=== PATIENT | female | born 1990 | race Caucasian/White ===

== ENCOUNTER 2019-12-04 09:30 | Emergency (ER) | payer OTHER, SELFPAY ==
--- NOTE | ~2019-12-04 | XR_ITS ---
EXAMINATION: XR chest 1V portable DATE: 12/04/2019 10:10 INDICATION: Shortness of breath. TECHNIQUE: A single frontal view of the chest was obtained. COMPARISON: CT abdomen and pelvis 10/24/2017 FINDINGS: Sensitivity is decreased by obesity. There are airspace opacities in the lower lung zones, left worse than right. No pleural effusion or pneumothorax. The heart size is normal. IMPRESSION: 1. Airspace opacities in the lower lung zones, left worse than right, consistent with atelectasis rad michael pneumonia. Reviewed, dictated and finalized at location A. IMPRESSION: 1. Airspace opacities in the lower lung zones, left worse than right, consisten t with atelectasis versus pneumonia.
--- NOTE | 2019-12-04 09:33 | PC.NURSE ---
Pt states that she has had a outpatient order from a covid-19 screening test from her PCP but cannot find anyone to take the order and test her. 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 Symptoms are not getting better and now having increased SOB since Friday. 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 She was told that all healthcare workers should recieve Covid testing but has been told by several local emergency rooms that she does not meet criteria for testing and they would not test her.
--- NOTE | 2019-12-04 09:35 | ED.SOB ---
HPI - SOB/Dyspnea General Chief Complaint: Shortness of Breath/Dyspnea Stated Complaint: SOB since Friday Time Seen by Provider: 12/04/19 09:32 History of Present Illness HPI Narrative: COugh, SOB, pleuritic chest pain since Friday. Additionally c/o diarrhea and fatigue. She has been seen previously for these symptoms and started on azithromycin. She has prescription for COVID-19 testing from her PCP, but she has not been able to have it collected. No fever. Related Data Home Medications Medication Instructions Recorded Confirmed spironolactone 100 mg PO BID 12/04/19 Allergies Allergy/AdvReac Type Severity Reaction Status Date / Time No Known Allergies Allergy Verified 12/04/19 10:00 Review of Systems Review of Systems: All systems reviewed & are unremarkable except as noted in HPI and below Constitutional: Constitutional: Reports fatigue and Denies fever(s) ENT: Reports nasal congestion and Denies sore throat Cardiovascular: Cardiovascular: Reports chest pain Respiratory: Respiratory: Reports chest congestion, Reports cough and Reports dyspnea Gastrointestinal: Gastrointestinal: Denies nausea and Denies vomiting Musculoskeletal: Musculoskeletal: Reports myalgias Neurologic: Denies weakness [facility] Social History Social History (Updated 12/04/19 @ 12:46 by Ata Durham MD) Smoking status: Never smoker Gender identity (if verbalized by the patient): Female Exam Const: General: no acute distress, alert and ill appearing (mildly) Orientation/consciousness: patient oriented x3 HENMT: Head: normal to inspection Resp: Effort & Inspection: normal respiratory effort Auscultation: rhonchi Cardio: Rate: regular rate Rhythm: regular rhythm GI: GI Palp: Yes Soft to palpation and No Tenderness to palpation present (GI) Skin: General skin exam: normal color Neuro: General: patient oriented x3, moves all extremities and no focal motor deficits Speech: normal speech Extrem: General: normal to inspection Course Vital Signs Vital signs: Vital Signs Temperature 36.6 C 12/04/19 09:55 Pulse Rate 88 12/04/19 09:55 Respiratory Rate 18 12/04/19 09:55 Blood Pressure 133/90 12/04/19 09:55 Pulse Oximetry 98 12/04/19 09:55 Temperature 36.6 C 12/04/19 09:55 Pulse Rate 88 12/04/19 09:55 Respiratory Rate 18 12/04/19 09:55 Blood Pressure 133/90 12/04/19 09:55 Pulse Oximetry 98 12/04/19 09:55 MDM - SOB/Dyspnea MDM Narrative Medical decision making narrative: She has bilateral lower lobe infiltrates. Could certainly be COVID. She is not hypoxic and has no reason for admision. Will send off commercial testing and treat for pneumonia. Differential Diagnosis Differential diagnosis: Likely community acquired pneumonia and other (Bronchitis, COVID-19) Medical Records Attestation: I reviewed the patient's medical records. Lab Data Attestation: I reviewed the patient's lab results. Labs: Lab Results 12/04/19 Range/Units 10:46 COVID-19 Pt Symptomatic Pending COVID-19 PCR Interp Pending SARS-CoV-2 Source Pending SARS-CoV-2 RNA (RT-PCR) Pending Discharge Plan Discharge Clinical Impression: Pneumonia Qualifiers: Pneumonia type: due to unspecified organism Laterality: bilateral Lung location: lower lobe of lung Qualified Code(s): J18.9 - Pneumonia, unspecified organism Patient Disposition: Home, Self-Care Condition: Stable Instructions: Antibiotic Form, Pneumonia (ED) Prescriptions: New azithromycin 250 mg tablet See Rx Instructions .ROUTE .COMPLEX Qty: 6 RF: 0 amoxicillin 500 mg tablet 500 mg PO Q8H 5 Days Qty: 15 RF: 0 albuterol sulfate 90 mcg/actuation HFA aerosol inhaler 2 puff INHALATION QID PRN (Reason: shortness of breath or wheezing) Qty: 8 RF: 0 No Action spironolactone 100 mg Tablet 100 mg PO BID RF: 0 Follow-up/Referrals: PHYSICIAN NOT ON STAFF,NONSTAFF [Non-Staff] - Stand Alone
[2019-12-04 09:55] VITALS: BP 133/90; PULSE 88; RESP 18; TEMP 36.6; O2SAT 98
--- NOTE | 2019-12-04 10:50 | PC.NURSE ---
Swab collected and sent to lab. Patient did not tolerate well; coughing and crying. Hyperventilating prior to collection, encouraged to slow breathing.
[2019-12-06 18:44] LABS: Pan-SARS RNA: NEGATIVE (NEGATIVE); SARS-CoV-2 RNA: NEGATIVE (NEGATIVE)
== END 2019-12-04 11:20 | disposition home or self-care (01) ==
PROVIDERS: Emergency Provider Emergency Medicine; PCP Physician Assistant
DX: J18.9 Pneumonia, unspecified organism (principal); Z20.828 Contact with and (suspected) exposure to other viral communicable diseases
CPT/HCPCS: 71045; 87635; 99283; U0002

== ENCOUNTER 2019-12-18 12:46 | Emergency (ER) | payer OTHER, SELFPAY ==
--- NOTE | ~2019-12-18 | XR_ITS ---
EXAMINATION: XR chest 1V portable INDICATION: Cough TECHNIQUE: Portable AP chest at 1316 hours COMPARISON: 12/04/2019 FINDINGS: Bibasilar airspace opacities persist without significant change. There is no pleural effusi on or pneumothorax. The heart size is normal. IMPRESSION: 1. Stable bibasilar airspace opacities, likely atelectasis. Reviewed, dictated and finalized at location A.
[2019-12-18 12:50] VITALS: BP 140/95; PULSE 89; RESP 20; TEMP 36.5; O2SAT 96
--- NOTE | 2019-12-18 13:00 | ED.URI ---
HPI - URI/Sore Throat General Chief Complaint: Upper Respiratory Infection Stated Complaint: SOB X2WKS,FATIGUED Time Seen by Provider: 12/18/19 12:48 Source: patient Mode of arrival: ambulatory Limitations: no limitations History of Present Illness HPI Narrative: Patient is a 29-year-old female who presents to emergency department for evaluation of upper respiratory symptoms that been present since the beginning of the month was seen in the emergency department on the was diagnosed with pneumonia and sent home completed the medications and notes that she continues to have cough dyspnea pleuritic chest discomfort diarrhea and some mild rhinorrhea and congestion. Patient was seen in urgent care and has been in contact with primary care after her initial ER visit patient notes nothing is helped with her symptoms. On arrival to the room patient in no distress resting comfortably. Patient had negative COVID testing on her initial visit. Related Data Home Medications Medication Instructions Recorded Confirmed spironolactone 100 mg PO BID 12/04/19 Allergies Allergy/AdvReac Type Severity Reaction Status Date / Time No Known Allergies Allergy Verified 12/18/19 12:54 Review of Systems Review of Systems: All systems reviewed & are unremarkable except as noted in HPI and below PMFSH Social History Social History Smoking status: Never smoker Gender identity (if verbalized by the patient): Female Exam Narrative: Exam Narrative: GENERAL: Well-appearing, obese, and in no acute distress. HEAD: Normocephalic, atraumatic. EYES: PERRLA and EOMI. ENT: Nares clear, no rhinorrhea or epistaxis. Mucous membranes moist. CHEST: Clear to auscultation. No respiratory distress. No wheezes rales or rhonchi HEART: Regular rate and rhythm. No murmur heard. Normal peripheral pulses. EXTREMITIES: Normal range of motion. No edema. SKIN: Warm, dry, no rash. NEURO: No focal deficits. Alert and oriented x3. PSYCH: Normal mood and affect. Course Course Emergency Course: Patient in the room in no distress no high risk changes in the blood work or imaging felt appropriate for discharge home for further evaluation by primary care Vital Signs Vital signs: Vital Signs Temperature 97.7 F 12/18/19 12:50 Pulse Rate 89 12/18/19 12:50 Respiratory Rate 20 12/18/19 12:50 Blood Pressure 140/95 H 12/18/19 12:50 Pulse Oximetry 96 12/18/19 12:50 Temperature 97.7 F 12/18/19 12:50 Pulse Rate 82 12/18/19 15:21 Respiratory Rate 15 12/18/19 15:21 Blood Pressure 113/80 12/18/19 15:21 Pulse Oximetry 96 12/18/19 15:21 MDM - URI/Sore Throat MDM Narrative Medical decision making narrative: Patient in the room aware of case findings treatment plan and diagnosis agreeing to follow-up as directed primary care provided with reasons to return likely viral syndrome is the etiology of her symptoms no pneumonia seen on exam nontoxic without emesis felt appropriate for outpatient reevaluation provided with reasons to return can be treated symptomatically Lab Data Result diagrams: 12/18/19 14:23 12/18/19 14:23 Labs: Lab Results 12/18/19 12/18/19 12/18/19 Range/Units 14:23 14:23 14:23 WBC 11.0 H (4.5-10.0) K/mm3 RBC 4.98 (4.2-5.4) M/mm3 Hgb 14.7 (12.0-15.0) g/dL Hct 44.9 (37.0-47.0) % MCV 90.2 (80-100) fl MCH 29.5 (26-34) pg MCHC 32.7 (32-36) g/dl RDW 12.5 (11.5-14.5) % Plt Count 312 (150-375) k/mm3 MPV 8.4 (7.4-10.4) fl Immature Gran % (Auto) 0.6 H (0-0.5) % Neut % (Auto) 51.2 (45.5-73.1) % Lymph % (Auto) 35.5 (18.3-44.2) % [place] % (Auto) 9.1 H (2.6-8.5) % Eos % (Auto) 3.1 (0-4.4) % Baso % (Auto) 0.5 (0.2-1.2) % Lymph # (Auto) 3.92 H (0.9-3.2) K/mm3 [place] # (Auto) 1.0 H (0.1-0.6) K/mm3 Eos # (Auto) 0.3 (0-0.3) K/mm3 Baso # (Auto) 0.1 (
[2019-12-18 14:15] VITALS: BP 137/88; PULSE 86; RESP 16; O2SAT 97
[2019-12-18 14:31] LABS: Basophils Absolute Auto 0.1 K/mm3 (0.0-0.1); Basophils Percent Auto 0.5 % (0.2-1.2); Eosinophils Absolute Auto 0.3 K/mm3 (0-0.3); Eosinophils Percent Auto 3.1 % (0-4.4); Hematocrit 44.9 % (37.0-47.0); Hemoglobin 14.7 g/dL (12.0-15.0); Immature Granulocyte Absolute 0.07 K/mm3 (0.00-0.031); Immature Granulocyte Percent A 0.6 % (0-0.5); Lymphocytes Absolute Auto 3.92 K/mm3 (0.9-3.2); Lymphocytes Percent Auto 35.5 % (18.3-44.2); Mean Corpuscular HGB Conc 32.7 g/dl (32-36); Mean Corpuscular Hemoglobin 29.5 pg (26-34); Mean Corpuscular Volume 90.2 fl (80-100); Mean Platelet Volume 8.4 fl (7.4-10.4); Monocytes Percent Auto 9.1 % (2.6-8.5); Neutrophils Absolute Auto 5.7 K/mm3 (1.3-6.7); Neutrophils Percent Auto 51.2 % (45.5-73.1); Platelet Count Result 312 k/mm3 (150-375); Red Blood Count 4.98 M/mm3 (4.2-5.4); Red Cell Distribution Width 12.5 % (11.5-14.5)
[2019-12-18 14:54] LABS: Alanine Aminotransferase 20 U/L (4-35); Albumin Level 4.1 g/dL (3.5-5.1); Alkaline Phosphatase 89 U/L (38-126); Aspartate Amino Transferase 15 U/L (14-36); Bilirubin,Total 0.3 mg/dL (0.2-1.3); Blood Urea Nitrogen 13 mg/dL (7-17); Calcium 9.1 mg/dL (8.4-10.2); Carbon Dioxide 29 mmol/L (22-30); Chloride 102 mmol/L (98-107); Estimated CRCL calculation 143 ml/min; Estimated Glomerular Filt Rate > 60; Glucose 98 mg/dL (65-105); Sodium 137 mmol/L (137-145)
[2019-12-18 15:21] VITALS: BP 113/80; PULSE 82; RESP 15; O2SAT 96
[2019-12-18 16:31] LABS: Monoscreen Negative (Negative); Negative Monotest Control Negative (Negative); Positive Monotest Control Positive (Positive)
== END 2019-12-18 16:55 | disposition home or self-care (01) ==
PROVIDERS: Emergency Medicine Emergency Medical Services; Emergency Provider Emergency Medicine; PCP Physician Assistant
DX: J06.9 Acute upper respiratory infection, unspecified (principal)
CPT/HCPCS: 36415; 71045; 80053; 85025; 86308; 99283

== ENCOUNTER 2020-06-16 07:28 | Emergency (ER) | payer OTHER, SELFPAY ==
[2020-06-16 07:40] VITALS: BP 154/100; PULSE 120; RESP 18; TEMP 36.5; O2SAT 100
--- NOTE | 2020-06-16 07:58 | ED.GENADULT ---
HPI - General Adult General Chief complaint: Dental/Oral Stated complaint: enlarged tonsils Time Seen by Provider: 06/16/20 07:35 History of Present Illness HPI narrative: Patient is a 30-year-old female who presents ER with sore throat and tonsillar enlargement. Patient reports she had no preceding symptoms over the last few days. She woke up this morning because she gagged. She feels like it is difficult to swallow and occasionally difficult to breathe due to the enlargement of her tonsils. She has no fevers or chills or sweats. No stiffness of the neck. No known sick contacts. Related Data Home Medications Medication Instructions Recorded Confirmed spironolactone 100 mg PO BID 12/04/19 metformin mg 06/16/20 06/16/20 Allergies Allergy/AdvReac Type Severity Reaction Status Date / Time No Known Allergies Allergy Verified 06/16/20 07:45 Review of Systems Constitutional: Constitutional: Denies chills and Denies fever(s) ENT: Denies nasal congestion and Reports sore throat Comments: Discomfort with swallowing Respiratory: Respiratory: Denies cough and Denies dyspnea PMFSH Past Medical History Medical History (Updated 06/16/20 @ 09:05 by Fritz Joy MD) Polycystic ovarian syndrome Surgical History Surgical History (Updated 06/16/20 @ 07:59 by Fritz Joy MD) No pertinent past surgical history Social History Social History Smoking status: Never smoker Gender identity (if verbalized by the patient): Female Exam Narrative: Exam Narrative: GENERAL: Well-appearing, well-nourished, and in no acute distress. HEAD: Normocephalic, atraumatic. ENT: Mucous membranes moist. Tonsillar hypertrophy with 4+ tonsils with the right tonsil moving slightly anterior versus left tonsil. No uvular shift. No exudate noted. Patient is tolerating oral secretions without issue. Mildly muffled voice. NECK: Supple. CHEST: Clear to auscultation. No respiratory distress. No stridor. HEART: Tachycardic and regular. Normal peripheral pulses. ABDOMEN: Soft, nontender, nondistended, normal active bowel sounds. NEURO: Alert and oriented x3. Course Course Emergency Course: Strep positive. Patient given oral Decadron and intramuscular Bicillin LA. Discharge home. Vital Signs Vital signs: Vital Signs Temperature 97.7 F 06/16/20 07:40 Pulse Rate 120 H 06/16/20 07:40 Respiratory Rate 18 06/16/20 07:40 Blood Pressure 154/100 H 06/16/20 07:40 Pulse Oximetry 100 06/16/20 07:40 Temperature 97.7 F 06/16/20 07:40 Pulse Rate 120 H 06/16/20 07:40 Respiratory Rate 18 06/16/20 07:40 Blood Pressure 154/100 H 06/16/20 07:40 Pulse Oximetry 100 06/16/20 07:40 Medical Decision Making Vital Signs Vital Signs: Vital Signs Temperature 97.7 F 06/16/20 07:40 Pulse Rate 120 H 06/16/20 07:40 Respiratory Rate 18 06/16/20 07:40 Blood Pressure 154/100 H 06/16/20 07:40 Pulse Oximetry 100 06/16/20 07:40 Temperature 97.7 F 06/16/20 07:40 Pulse Rate 120 H 06/16/20 07:40 Respiratory Rate 18 06/16/20 07:40 Blood Pressure 154/100 H 06/16/20 07:40 Pulse Oximetry 100 06/16/20 07:40 Lab Data Labs: Strep Screen Positive Group A Strep *(Reference Range: Negative)* Discharge Plan Discharge Clinical Impression: Strep throat Patient Disposition: Home, Self-Care Condition: Stable Instructions: Strep Throat (ED) Additional Instructions: You have strep throat which is caused enlargement of your tonsils. You received a steroid called Decadron to help with swelling and you also received intramuscular Bicillin LA which is an antibiotic to kill the infection. Return the ER if you cannot breathe, you cannot swallow, you lose consciousness, or have additional concerns. Prescriptions: No Action spironolactone 100 mg Tablet 100 mg PO B
[2020-06-16] MEDS: PENICILLIN G BENZATHINE 1,200,000 UNITS/2 ML SYRINGE 1200000 UNITS IM (09:18)
== END 2020-06-16 09:26 | disposition home or self-care (01) ==
PROVIDERS: Emergency Provider Emergency Medicine; PCP Physician Assistant
DX: J02.0 Streptococcal pharyngitis (principal); E28.2 Polycystic ovarian syndrome
CPT/HCPCS: 87880; 96372; 99283; J0561; J8540

== ENCOUNTER 2020-08-25 03:19 | Emergency (ER) | payer OTHER, SELFPAY ==
[2020-08-25 03:25] VITALS: BP 131/82; PULSE 101; RESP 18; TEMP 37.1; O2SAT 97
--- NOTE | 2020-08-25 03:51 | ED.GENADULT ---
HPI - General Adult General Chief complaint: Extremity Problem,Nontraumatic Stated complaint: right calf pain x 3 weeks History of Present Illness HPI narrative: Patient is 22-year-old female who presents the emergency department with chief complaint of right calf pain. The patient reports that for the last several days she has had pain in her right calf that is felt like a charley horse. The patient reports that she is concerned that she may have a DVT and decided to come to the emergency department this morning after she felt a little nauseated. The patient denies chest pain denies shortness of breath denies prior history of DVT or pulmonary embolism. Related Data Home Medications Medication Instructions Recorded Confirmed spironolactone 100 mg PO BID 12/04/19 metformin mg 06/16/20 06/16/20 Allergies Allergy/AdvReac Type Severity Reaction Status Date / Time No Known Allergies Allergy Verified 08/25/20 03:20 Review of Systems Review of Systems: Narrative: A 10 system review of systems was completed on the patient and is negative except for what is stated in the HPI. Nursing and ancillary documentation was reviewed. [facility] Past Medical History Medical History Polycystic ovarian syndrome Surgical History Surgical History No pertinent past surgical history Social History Social History Smoking status: Never smoker Gender identity (if verbalized by the patient): Female Exam Narrative: Exam Narrative: GENERAL: Well-appearing, well-nourished, and in no acute distress. HEAD: Normocephalic, atraumatic. EYES: PERRLA and EOMI. ENT: Nares clear, no rhinorrhea or epistaxis. Mucous membranes moist. NECK: Supple. CHEST: Clear to auscultation. No respiratory distress. HEART: Regular rate and rhythm. No murmur heard. Normal peripheral pulses. ABDOMEN: Soft, nontender, nondistended, normal active bowel sounds. EXTREMITIES: Normal range of motion. No edema. There is tenderness to palpation in the right calf SKIN: Warm, dry, no rash. NEURO: No focal deficits. Alert and oriented x3. PSYCH: Normal mood and affect. Course Course Emergency Course: Patient's D-dimer was negative at this time we will not anticoagulate the patient and she will return at 9:00 in the morning for a venous duplex of the right lower extremity Vital Signs Vital signs: Vital Signs Temperature 37.1 C 08/25/20 03:25 Pulse Rate 101 H 08/25/20 03:25 Respiratory Rate 18 08/25/20 03:25 Blood Pressure 131/82 08/25/20 03:25 Pulse Oximetry 97 08/25/20 03:25 Temperature 37.1 C 08/25/20 03:25 Pulse Rate 94 08/25/20 04:30 Respiratory Rate 18 08/25/20 04:30 Blood Pressure 119/83 08/25/20 04:30 Pulse Oximetry 85 L 08/25/20 04:30 Medical Decision Making Vital Signs Vital Signs: Vital Signs Temperature 37.1 C 08/25/20 03:25 Pulse Rate 101 H 08/25/20 03:25 Respiratory Rate 18 08/25/20 03:25 Blood Pressure 131/82 08/25/20 03:25 Pulse Oximetry 97 08/25/20 03:25 Temperature 37.1 C 08/25/20 03:25 Pulse Rate 94 08/25/20 04:30 Respiratory Rate 18 08/25/20 04:30 Blood Pressure 119/83 08/25/20 04:30 Pulse Oximetry 85 L 08/25/20 04:30 Lab Data Result diagrams: 08/25/20 03:49 08/25/20 03:49 Labs: Lab Results 08/25/20 08/25/20 08/25/20 Range/Units 03:49 03:49 03:49 WBC 8.3 (4.5-10.0) K/mm3 RBC 5.24 (4.2-5.4) M/mm3 Hgb 15.4 H (12.0-15.0) g/dL Hct 46.8 (37.0-47.0) % MCV 89.3 (80-100) fl MCH 29.4 (26-34) pg MCHC 32.9 (32-36) g/dl RDW 12.3 (11.5-14.5) % Plt Count 281 (150-375) k/mm3 MPV 8.3 (7.4-10.4) fl Immature Gran % (Auto) 0.2 (0-0.5) % Neut % (Auto) 52.3 (45.5-73.1) % Lymph % (Auto) 36.1 (18.
[2020-08-25 03:53] LABS: Basophils Percent Auto 0.4 % (0.2-1.2); Eosinophils Absolute Auto 0.1 K/mm3 (0-0.3); Eosinophils Percent Auto 1.3 % (0-4.4); Hematocrit 46.8 % (37.0-47.0); Hemoglobin 15.4 g/dL (12.0-15.0); Immature Granulocyte Absolute 0.02 K/mm3 (0.00-0.031); Immature Granulocyte Percent A 0.2 % (0-0.5); Lymphocytes Absolute Auto 3.01 K/mm3 (0.9-3.2); Lymphocytes Percent Auto 36.1 % (18.3-44.2); Mean Corpuscular HGB Conc 32.9 g/dl (32-36); Mean Corpuscular Hemoglobin 29.4 pg (26-34); Mean Corpuscular Volume 89.3 fl (80-100); Mean Platelet Volume 8.3 fl (7.4-10.4); Monocytes Absolute Auto 0.8 K/mm3 (0.1-0.6); Monocytes Percent Auto 9.7 % (2.6-8.5); Neutrophils Absolute Auto 4.4 K/mm3 (1.3-6.7); Neutrophils Percent Auto 52.3 % (45.5-73.1); Platelet Count Result 281 k/mm3 (150-375); Red Blood Count 5.24 M/mm3 (4.2-5.4); Red Cell Distribution Width 12.3 % (11.5-14.5); White Blood Count 8.3 K/mm3 (4.5-10.0)
[2020-08-25 04:06] LABS: Alanine Aminotransferase 22 U/L (4-35); Albumin Level 4.3 g/dL (3.5-5.1); Alkaline Phosphatase 69 U/L (38-126); Anion Gap 8 mmol/L (8-16); Aspartate Amino Transferase 21 U/L (14-36); Bilirubin,Total 0.5 mg/dL (0.2-1.3); Blood Urea Nitrogen 13 mg/dL (7-17); Calcium 9.7 mg/dL (8.4-10.2); Carbon Dioxide 30 mmol/L (22-30); Chloride 100 mmol/L (98-107); Estimated CRCL calculation 163 ml/min; Estimated Glomerular Filt Rate > 60; Glucose 102 mg/dL (65-105); Sodium 138 mmol/L (137-145)
[2020-08-25 04:26] LABS: Partial Thromboplastin Time 35.3 SECONDS (22.3-36.8); Prothrombin Time 13.8 Seconds (11.1-14.7)
[2020-08-25 04:30] VITALS: BP 119/83; PULSE 85; RESP 18; O2SAT 94
[2020-08-25 05:03] LABS: D Dimer < 0.22 ug/mL (<0.48)
[2020-08-25 05:15] VITALS: BP 123/79; PULSE 85; RESP 18; O2SAT 97
== END 2020-08-25 05:20 | disposition home or self-care (01) ==
PROVIDERS: Emergency Provider Emergency Medicine; PCP Physician Assistant
DX: M79.661 Pain in right lower leg (principal); E28.2 Polycystic ovarian syndrome; Z79.84 Long term (current) use of oral hypoglycemic drugs
CPT/HCPCS: 36415; 80053; 83735; 85025; 85380; 85610; 85730; 93971; 99283

== ENCOUNTER 2020-08-25 09:06 | Outpatient (CLI) | payer OTHER, SELFPAY ==
--- NOTE | ~2020-08-25 | US_ITS ---
EXAMINATION: US venous doppler LE DATE: 08/25/2020 09:58 INDICATION: Right lower limb pain TECHNIQUE: Grayscale ultrasound images without and with compression and Doppler ultrasound images of the right lower extremity veins were obtained. COMPARISON: None. FINDINGS: The visualized portions of right common femoral vein, profunda (deep) femoral vein, femoral vein, pop liteal vein, peroneal trunk, posterior tibial veins, peroneal veins, gastrocnemius vein and greater s aphenous vein outflow are patent. IMPRESSION: 1. No deep venous thrombosis in the right lower limb. Reviewed, dictated and finalized at location A. ER TIRE CORD
== END 2020-08-25 09:07 | disposition home or self-care (01) ==
PROVIDERS: PCP Physician Assistant; Visit Provider Physician Assistant
DX: M79.661 Pain in right lower leg (principal)
CPT/HCPCS: 93971

== ENCOUNTER 2020-09-16 00:51 | Outpatient (CLI) | payer OTHER, SELFPAY ==
[2020-09-17 00:20] LABS: SARS-CoV-2 RNA PCR Negative
== END 2020-09-16 00:52 | disposition home or self-care (01) ==
LOC: ANHCOVIDDT 00:51
PROVIDERS: PCP Physician Assistant; Visit Provider Otolaryngology
DX: Z01.812 Encounter for preprocedural laboratory examination (principal); Z20.822 Contact with and (suspected) exposure to COVID-19
CPT/HCPCS: C9803; U0003; U0005

== ENCOUNTER 2020-09-19 01:08 | Day surgery (SDC) | payer OTHER, SELFPAY ==
[2020-09-13 12:14] VITALS: BMI 43.9
--- NOTE | 2020-09-18 08:37 | WPDANESEPPF ---
Anes - Initial Pre Proc Eval Procedure: Operation Date: 09/19/20 11:45 Proposed Procedures p Tonsillectomy - Chris Camejo MD Date/Time: 09/18/20 08:37 Surgeon: Chris Camejo MD Pre Op Diagnosis: Hyper Trophic Tonsils Patient Data Age: 30 Gender: F Height: 1.7 m Weight: 127.27 kg Allergies Allergy/AdvReac Type Severity Reaction Status Date / Time No Known Allergies Allergy Verified 09/19/20 09:41 Home Medications Medication Instructions Recorded Confirmed Type spironolactone 100 mg PO BID 12/04/19 09/19/20 History metformin 500 mg BID 06/16/20 09/19/20 History ascorbic acid (vitamin C) 500 mg 500 mg PO DAILY 08/31/20 09/19/20 History capsule omeprazole 20 mg capsule,delayed 20 mg PO EVERY OTHER DAY 08/31/20 09/19/20 History release biotin 10,000 mcg PO DAILY 09/13/20 09/19/20 History cholecalciferol (vitamin D3) 7,000 unit PO DAILY 09/13/20 09/19/20 History [Vitamin D3] cyanocobalamin (vitamin B-12) 1,000 mcg PO DAILY 09/13/20 09/19/20 History drospirenone (contraceptive) 4 mg PO DAILY 09/13/20 09/19/20 History [Slynd] multivitamin [Multi-Vitamin] 1 tablet PO DAILY 09/13/20 09/19/20 History zinc 50 mg PO DAILY 09/13/20 09/19/20 History Patient hx anesthesia problems: none Family hx anesthesia problems: none [facility] Past Medical History Medical History (Updated 09/18/20 @ 08:38 by Kit Brown DO) Anxiety Bipolar disorder Depression BROOKE (obstructive sleep apnea) Polycystic ovarian syndrome Seizure Surgical History Surgical History (Updated 09/18/20 @ 08:38 by Kit Brown DO) H/O brain surgery History of right mastoidectomy No pertinent past surgical history Social History Social History Smoking packs per day: 1 Smoking cigarettes per day: 20.0 Years smoked: 4 Smoking pack-years: 4.00 Smoking status: Former smoker Tobacco type: cigarettes Additional smoking assessment comments: QUIT 2010 Alcohol intake: never Substance use: never Substance use type: does not use Living arrangements: with family Additional living arrangements comments: [facility] Gender identity (if verbalized by the patient): Female Spiritual care concerns: No Anes - Eval Final PreProcedure Day of Procedure 09/18/20 08:37 Patient weight: morbidly obese Heart: regular rate and rhythm Lungs: clear to auscultation and normal air movement Airway: Mallampati scale class III Neurological: alert and oriented Last oral intake: >/= 8 hours ASA classification: II Emergent: no Anesthetic plan: proceed Anesthesia type and monitoring: general ETT and standard monitoring Informed Consent: The patient's anesthetic plan and its attendant risks and benefits were discussed with the patient/family/POA. Questions were solicited and answers provided to the satisfaction of the patient/family/POA.
[2020-09-19] VITALS (10 sets, daily range): BP systolic 108–139; BP diastolic 70–103; PULSE 88–116; RESP 14–24; TEMP 36.4–36.8; O2SAT 89–98
--- NOTE | 2020-09-19 06:11 | PM.HPGS ---
History of Present Illness History of Present Illness Consent: Risks, benefits, and alternatives have been discussed and questions answered. Patient agrees to proceed with procedure. Chief complaint: Hyper Trophic Tonsils Narrative: Jeane Vasquez is a 30 year old female recurrent episodes of tonsillitis treated with various courses of antibiotics admitted for elective tonsillectomy Review of Systems Review of Systems: All systems reviewed & are unremarkable except as noted in HPI and below PMFSH Past Medical History Medical History (Updated 09/18/20 @ 08:38 by Kit Brown DO) Anxiety Bipolar disorder Depression BROOKE (obstructive sleep apnea) Polycystic ovarian syndrome Seizure Surgical History Surgical History (Updated 09/18/20 @ 08:38 by Kit Brown DO) H/O brain surgery History of right mastoidectomy No pertinent past surgical history Social History Social History Smoking packs per day: 1 Smoking cigarettes per day: 20.0 Years smoked: 4 Smoking pack-years: 4.00 Smoking status: Former smoker Tobacco type: cigarettes Additional smoking assessment comments: QUIT 2010 Alcohol intake: never Substance use: never Substance use type: does not use Living arrangements: with family Additional living arrangements comments: [facility] Gender identity (if verbalized by the patient): Female Spiritual care concerns: No Meds Home Medications and Allergies Home Medications Medication Instructions Recorded Confirmed Type spironolactone 100 mg PO BID 12/04/19 09/13/20 History metformin 500 mg BID 06/16/20 09/13/20 History ascorbic acid (vitamin C) 500 mg 500 mg PO DAILY 08/31/20 09/13/20 History capsule omeprazole 20 mg capsule,delayed 20 mg PO EVERY OTHER DAY 08/31/20 09/13/20 History release biotin 10,000 mcg PO DAILY 09/13/20 09/13/20 History cholecalciferol (vitamin D3) 7,000 unit PO DAILY 09/13/20 09/13/20 History [Vitamin D3] cyanocobalamin (vitamin B-12) 1,000 mcg PO DAILY 09/13/20 09/13/20 History drospirenone (contraceptive) 4 mg PO DAILY 09/13/20 09/13/20 History [Slynd] multivitamin [Multi-Vitamin] 1 tablet PO DAILY 09/13/20 09/13/20 History zinc 50 mg PO DAILY 09/13/20 09/13/20 History Allergies Allergy/AdvReac Type Severity Reaction Status Date / Time No Known Allergies Allergy Verified 09/13/20 12:07 Assessment and Plan Additional Plan Plan is tonsillectomy
--- NOTE | 2020-09-19 06:12 | WPDHPUPDATE1 ---
History and Physical Update Update Date/Time: 09/19/20 06:12 History and Physical has been reviewed, including an updated exam of the patient. There are NO changes in the patient's condition. Risks, benefits, and alternatives have been discussed and questions answered. Patient agrees to proceed with procedure.
[2020-09-19] MEDS: ACETAMINOPHEN 500 MG TABLET 1000 MG PO (09:40)
[2020-09-19] MEDS: LACTATED RINGERS 1,000 ML 30 ML IV CONT ×2 (09:55→11:23)
--- NOTE | 2020-09-19 10:18 | PM.PROC ---
Procedure Note - Detailed Date of procedure: 09/19/20 Pre-op diagnosis: Hyper Trophic Tonsils Post-op diagnosis: same Procedure performed: Tonsillectomy Description of procedure: Patient was prepped and draped in the in the usual fashion after induction of general anesthesia. The [] ear was inspected. Cerumen was removed the ear canal. An anteroinferior incision sit incision was made fluid aspirated and a Prashanth bobbin inserted. This procedure was repeated on the other ear with similar findings. Patient awakened returned to recovery in good condition. Anesthesia: GETA Surgeon: Chris Camejo MD Estimated blood loss (mL): 10 Packing: No Pathology: none sent Complications: None Condition: stable Disposition: same day Findings: Hypertrophic tonsils
[2020-09-19] MEDS: fentaNYL CITRATE INJ (*CRX) 100 MCG/2 ML VIAL 25 MCG IV PUSH ×7 (11:06→11:55)
[2020-09-19] MEDS: ONDANSETRON INJ 4 MG/2 ML VIAL IV PUSH (11:53)
--- NOTE | 2020-09-20 07:19 | PM.PROC ---
Procedure Note - Detailed Date of procedure: 09/20/20 Pre-op diagnosis: Hyper Trophic Tonsils Post-op diagnosis: same Procedure performed: Tonsillectomy Description of procedure: Patient was prepped and draped in usual fashion after induction of anesthesia. The McIvor mouth gag was inserted. The tonsils were removed dissection technique hemostasis was obtained electrocautery. The mouth was inspected for bleeding. When stablized patient was awaken and brought to the recovery room in good condition. the date of this procedure was 09/19/2020 Anesthesia: GLMA Surgeon: Chris Camejo MD Estimated blood loss (mL): 15 Drains: No Packing: No Pathology: none sent Complications: No immediate complications Condition: stable Disposition: PACU
== END 2020-09-19 13:13 | disposition home or self-care (01) ==
PROVIDERS: PCP Physician Assistant; Visit Provider Otolaryngology
PROC: (CPT 42826; principal; 2020-09-19 11:45)
DX: J35.01 Chronic tonsillitis (principal); G47.33 Obstructive sleep apnea (adult) (pediatric); E28.2 Polycystic ovarian syndrome; F41.9 Anxiety disorder, unspecified; F31.9 Bipolar disorder, unspecified; Z79.84 Long term (current) use of oral hypoglycemic drugs; Z87.891 Personal history of nicotine dependence; E66.01 Morbid (severe) obesity due to excess calories; Z68.41 Body mass index [BMI] 40.0-44.9, adult
CPT/HCPCS: 42826; 88302; 88304; A9270; J0330; J1100; J2250; J2405; J2704; J3010; J7120

== ENCOUNTER 2021-09-21 08:01 | Emergency (ER) | payer OTHER, SELFPAY ==
[2021-09-21 08:13] VITALS: BP 129/94; PULSE 85; RESP 16; TEMP 36.5; O2SAT 99
--- NOTE | 2021-09-21 08:14 | ED.SKABFB ---
HPI - Skin/Abscess/Foreign Bdy General Chief complaint: Skin/Abscess/Foreign Body Stated complaint: Rash Time Seen by Provider: 09/21/21 08:15 Source: patient Mode of arrival: ambulatory Limitations: no limitations History of Present Illness HPI narrative: Jeane Vasquez is a 31 yo female with a PMH of genital wart, PCOS, comes to [facility] with a rash that is itchy after starting a cream medication for Curtis's warts that her doctor gave her. Her doctor cannot see her until the and so she came here she also has had unprotected sex and she has vaginal irritation and wants to be tested for STDs and she is on her menstrual cycle Related Data Home Medications Medication Instructions Recorded Confirmed spironolactone 100 mg PO BID 12/04/19 09/21/21 metformin 500 mg BID 06/16/20 09/21/21 Slynd 4 mg PO DAILY 09/13/20 09/21/21 Allergies Allergy/AdvReac Type Severity Reaction Status Date / Time No Known Allergies Allergy Verified 09/21/21 08:13 Review of Systems Review of Systems: CONSTITUTIONAL: Denies fever, chills, sweats. EYES: Denies visual changes, redness, discharge. ENT: Denies rhinorrhea, congestion, sore throat, otalgia. CARDIOVASCULAR: Denies chest pain, palpitations, edema. RESPIRATORY: Denies dyspnea, wheezing, cough GASTROINTESTINAL: Denies abdominal pain, nausea, vomiting, diarrhea. GENITOURINARY: Denies dysuria, hematuria, abnormal discharge SKIN: Hives, reports irritation around vaginal opening NEUROLOGIC: Denies numbness, or focal weakness. PSYCHIATRIC: Denies anxiety or depression. [facility] Past Medical History Medical History Anxiety Bipolar disorder Depression BROOKE (obstructive sleep apnea) Polycystic ovarian syndrome Seizure Surgical History Surgical History H/O brain surgery History of right mastoidectomy No pertinent past surgical history Social History Social History Smoking packs per day: 1 Smoking cigarettes per day: 20.0 Years smoked: 4 Smoking pack-years: 4.00 Smoking status: Former smoker Tobacco type: cigarettes Additional smoking assessment comments: QUIT 2010 Alcohol intake: never Substance use: never Substance use type: does not use Additional living arrangements comments: [facility] Gender identity (if verbalized by the patient): Female Spiritual care concerns: No Comments At time of signature, I agree with nursing past medical, surgical, social and family history. There is no relevant family history pertinent to the presenting complaint. Blood pressure elevated at this visit denies hypertension but will follow up with PCP Exam Narrative: GENERAL: This is a well-nourished, well-developed patient, in mild distress. HEAD: normocephalic, atraumatic. EYES: Sclera clear/white. Vision is grossly intact. EARS: External ears normal,. Hearing grossly intact. NOSE: External nose normal without nasal discharge, nares without redness, no rhinorrhea. THROAT: Mucous membranes moist, NECK: Neck supple, CARDIOVASCULAR: Regular rate and rhythm without murmurs, gallops, or rubs. RESPIRATORY: Clear to auscultation. Breath sounds equal bilaterally. No wheezes, rales, or rhonchi. GASTROINTESTINAL: Abdomen soft, SKIN: warm, intact with large hive appearing lesions on arms and she reports vaginal irritation. NEURO: awake, alert, and oriented to person, place and time. There were no obvious focal neurologic abnormalities. Steady gait EXTREMITIES: Normal range of motion. BACK: Nontender without deformity Course Course Emergency Course: Patient comes with hives and vaginal irritation after being treated for genital warts with a cream by her physician She has also had unprotected sex and does not know if that contributes to her vaginal irritation but she is on her menstrual cycle Patient t
[2021-09-21 08:15] VITALS: BP 129/94; PULSE 85; RESP 16; TEMP 36.5; O2SAT 99
== END 2021-09-21 08:33 | disposition home or self-care (01) ==
PROVIDERS: Emergency Provider Nurse Practitioner
DX: L50.9 Urticaria, unspecified (principal); L23.3 Allergic contact dermatitis due to drugs in contact with skin; Z87.891 Personal history of nicotine dependence; G47.33 Obstructive sleep apnea (adult) (pediatric); E28.2 Polycystic ovarian syndrome
CPT/HCPCS: 87491; 87591; 87661; 99214; G0463

== ENCOUNTER 2021-09-28 16:19 | Emergency (ER) | payer OTHER, SELFPAY ==
[2021-09-28 16:27] VITALS: BP 125/81; PULSE 84; RESP 16; TEMP 37.1; O2SAT 100
--- NOTE | 2021-09-28 16:48 | ED.FEMALEGU ---
HPI - Female Genitourinary General Chief complaint: Urogenital-Female Stated complaint: std testing Source: patient and RN notes reviewed Mode of arrival: ambulatory Limitations: no limitations History of Present Illness HPI Narrative: 31-year-old female returns for treatment after positive STD testing. Patient was seen on September 21 and was tested for gonorrhea, chlamydia. Patient was notified today that she tested positive for gonorrhea. She did not receive treatment at the time of testing. She denies any new symptoms or concerns since that time. MD elicited complaint: possible STD Related Data Home Medications Medication Instructions Recorded Confirmed spironolactone 100 mg PO BID 12/04/19 09/28/21 Allergies Allergy/AdvReac Type Severity Reaction Status Date / Time No Known Allergies Allergy Verified 09/28/21 16:31 Review of Systems Review of Systems: CONSTITUTIONAL: Denies malaise, chills, sweats, or fever. CARDIOVASCULAR: Denies chest pain, palpitations, or edema. RESPIRATORY: Denies cough or dyspnea. GASTROINTESTINAL: Denies abdominal pain, nausea, vomiting, diarrhea GENITOURINARY: Reports dysuria, frequency, urgency, suprapubic pressure. Denies flank pain or hematuria. SKIN:Hives, reports irritation around vaginal opening MUSCULOSKELETAL: Denies back pain or myalgia. All systems reviewed & are unremarkable except as noted in HPI and below PMFSH Past Medical History Medical History Anxiety Bipolar disorder Depression BROOKE (obstructive sleep apnea) Polycystic ovarian syndrome Seizure Surgical History Surgical History H/O brain surgery History of right mastoidectomy No pertinent past surgical history Social History Social History Smoking packs per day: 1 Smoking cigarettes per day: 20.0 Years smoked: 4 Smoking pack-years: 4.00 Smoking status: Former smoker Tobacco type: cigarettes Additional smoking assessment comments: QUIT 2010 Alcohol intake: never Substance use: never Substance use type: does not use Additional living arrangements comments: [facility] Gender identity (if verbalized by the patient): Female Spiritual care concerns: No Comments At time of signature, agree with nursing past medical, surgical, social and family history. There is no relevant family history pertinent to the presenting complaint Exam Narrative: GENERAL: Well-appearing, well-nourished, and in no acute distress. HEAD: Normocephalic. EYES: PERRLA, conjunctivae clear. NECK: Supple. No lymphadenopathy CHEST: Clear to auscultation. No respiratory distress. HEART: Regular rate and rhythm. SKIN: Warm, dry, no rash. NEURO: Alert and oriented x3. PSYCH: Normal mood and affect Course Course Emergency Course: Patient is aware of diagnosis, understands and agrees to treatment plan. Anticipatory guidance given. Patient agrees to follow-up as directed and is aware of reasons to seek care at the emergency department. Portions of this record may have been created with voice recognition software Level of Care: Express Care Visit Vital Signs Vital signs: Vital Signs Temperature 98.7 F 09/28/21 16:27 Pulse Rate 84 09/28/21 16:27 Respiratory Rate 16 09/28/21 16:27 Blood Pressure 125/81 09/28/21 16:27 Pulse Oximetry 100 09/28/21 16:27 Temperature 98.7 F 09/28/21 16:27 Pulse Rate 84 09/28/21 16:27 Respiratory Rate 16 09/28/21 16:27 Blood Pressure 125/81 09/28/21 16:27 Pulse Oximetry 100 09/28/21 16:27 Reviewed. MDM - Female Genitourinary MDM Narrative Medical decision making narrative: Exam findings show no acute concerns or changes; patient is non-toxic appearing and is in no distress. Patient is appropriate for outpatient treatment and follow-up. Differential Diagnosis Differential
[2021-09-28] MEDS: cefTRIAXone 500 MG, LIDOCAINE HCL 1% LOCAL INJ 1 ML IM (16:56)
== END 2021-09-28 17:27 | disposition home or self-care (01) ==
PROVIDERS: Emergency Provider Nurse Practitioner
DX: A54.9 Gonococcal infection, unspecified (principal); Z87.891 Personal history of nicotine dependence; G47.33 Obstructive sleep apnea (adult) (pediatric); E28.2 Polycystic ovarian syndrome
CPT/HCPCS: 96372; 99213; G0463; J0696

== ENCOUNTER 2023-03-13 19:25 | Emergency (ER) | payer OTHER, SELFPAY ==
--- NOTE | ~2023-03-13 | XR_ITS ---
EXAM: XR hand RT min 3V DATE: 03/13/2023 19:42 HISTORY: pain in rt 3rd phalanx after fall at work . COMPARISON: None available. FINDINGS: Normal mineralization. No fracture or dislocation. No lytic or blastic lesion. Joint space s are maintained. No erosion or periosteal change. Soft tissues within normal limits. IMPRESSION: No acute osseous finding in the right hand. Reviewed, dictated and finalized at location K.
--- NOTE | 2023-03-13 19:32 | ED.UPPEXIN ---
HPI - Extremity Injury (Upper) General Chief Complaint: Extremity Injury, Upper Stated Complaint: Right Hand Pain Time Seen by Provider: 03/13/23 19:30 Source: patient Mode of arrival: ambulatory Limitations: no limitations History of Present Illness HPI narrative: Jeane is a 32-year-old female patient presenting to the clinic today with complaints of right finger injury times. She reports Related Data Home Medications Medication Instructions Recorded Confirmed norgestimate 0.25 mg-ethinyl tablet 03/13/23 estradiol 35 mcg tablet (Sprintec (28)) Allergies Allergy/AdvReac Type Severity Reaction Status Date / Time No Known Allergies Allergy Verified 03/13/23 19:34 Review of Systems Review of Systems: Pertinent positives per HPI. Patient denies any fever, chills, rash, headache, visual changes, dizziness, cough, shortness of breath, chest pain, palpitations, nausea, vomiting, diarrhea, constipation, abdominal pain, or any urinary issues. PMFSH Past Medical History Medical History Anxiety Bipolar disorder Depression BROOKE (obstructive sleep apnea) Polycystic ovarian syndrome Seizure Surgical History Surgical History H/O brain surgery History of right mastoidectomy No pertinent past surgical history Social History Social History Smoking packs per day: 1 Smoking cigarettes per day: 20.0 Years smoked: 4 Smoking pack-years: 4.00 Smoking status: Former smoker Tobacco type: cigarettes Additional smoking assessment comments: QUIT 2011 Alcohol intake: never Substance use: never Substance use type: does not use Living arrangements: with family Additional living arrangements comments: [facility] Gender identity (if verbalized by the patient): Female Spiritual care concerns: No Comments At the time of my signature, I reviewed and agree with the nursing past medical, surgical, social, and family history. There is no relevant family history pertinent to the patient complaint. Exam Narrative: General: Well-developed, well nourished, in no apparent distress Head: Normocephalic, atraumatic. Cardio: Regular rate and rhythm, s1 and s2 normal, no murmur appreciated. Resp: Clear to auscultation bilaterally, no rhonchi, rales, wheezing or rubs. Musculoskeletal: No deformity,tender to palpation over the proximal right 3rd finger, pain with flexion extension of the finger against resistance, grossly normal range of motion, muscle strength strong and equal, peripheral pulse strong, no edema, no cyanosis, normal gait and station Course Course Emergency Course: Portions of this record may have been created with voice recognition software. Level of Care: Express Care Visit Vital Signs Vital signs: Vital signs reviewed MDM - Extremity Injury (Upper) MDM Narrative Medical decision making narrative: At the time of visit patient is resting comfortably on the exam table. X-ray of the right hand was completed without sign of fracture or malalignment. I suspect patient has a finger/hand contusion. Supportive measures were discussed with the patient she voiced understanding of the discharge instructions Differential Diagnosis Differential diagnosis: Likely finger sprain, dislocation of finger and other (Finger fracture, hand contusion) Discharge Plan Discharge Clinical Impression: Contusion, finger, Contusion of hand, Finger sprain Patient Disposition: Home, Self-Care Condition: Stable Instructions: Antibiotic Form, Contusion in Adults (ED), Sprain (ED) Additional Instructions: X-ray of the right hand is negative for any sign of fracture or malalignment. Rest, ice, and elevate Tylenol/motrin for pain as discussed. Follow up with your PCP if symptoms persist more than 1
[2023-03-13 19:42] VITALS: BP 144/85; PULSE 76; RESP 16; TEMP 37.1; O2SAT 100
== END 2023-03-13 20:00 | disposition home or self-care (01) ==
PROVIDERS: Emergency Provider Nurse Practitioner Family; PCP Physician Assistant
DX: S60.031A Contusion of right middle finger without damage to nail, initial encounter (principal); S60.221A Contusion of right hand, initial encounter; X58.XXXA Exposure to other specified factors, initial encounter; S63.612A Unspecified sprain of right middle finger, initial encounter; E28.2 Polycystic ovarian syndrome; Z87.891 Personal history of nicotine dependence
CPT/HCPCS: 73130; 99213; G0463